=== PATIENT | male | born 1970 | race American Indian/Alaskan Native ===

== ENCOUNTER 2020-11-12 21:38 | Emergency (ER) | payer BC ==
[2020-11-12 23:14] VITALS: BP 165/83
--- NOTE | 2020-11-12 23:19 | Emergency Department Report ---
ED Extremity Problem HPI - General Stated complaint: LT FOOT PAIN/SWELLING Source: patient Mode of arrival: Ambulatory Limitations: No Limitations - History of Present Illness Initial comments: Patient is a 50-year-old -[place] male with a history of morbid obesity, hyperlipidemia and hypertension who presents to the ED with complaint of acute onset persistent nontraumatic left plantar foot pain for the last 6 days. Patient states that the pain was initially mild but subsequently with weightbearing the pain got worse especially in the last 24 hours. Patient states that he has not been able to bear weight on the left foot because of worsening pain. Patient denies headache, dizziness, fall, traumatic injury, heavy lifting, low back pain, chest pain, shortness of breath, fever, chills, nausea and vomiting or hip pain. MD Complaint: extremity pain (Left plantar foot pain and swelling), extremity swelling (Left plantar foot pain and swelling), joint swelling (Left foot swelling) -: Sudden, days(s) (6) Location: left, lower extremity (Left plantar foot pain and swelling) History of Same: No -: Yes arthralgia, No fever, No associated dyspnea, No associated chest pain Radiation: distal Severity scale (0 -10): 8 Quality: aching, sharp Consistency: constant Improves with: nothing Worsens with: weight bearing, walking, exertion, palpation Associated Symptoms: denies other symptoms, arthralgias (Left plantar foot pain). denies: chest pain, shortness of breath, fever, myalgias, rash, other - Related Data Previous Rx's Medication Instructions Recorded Last Taken Type Naproxen 500 mg PO Q12H PRN #30 tablet 11/12/20 Unknown Rx predniSONE [Deltasone] 60 mg PO QDAY #15 tab 11/12/20 Unknown Rx traMADoL [Ultram] 50 mg PO Q6HR PRN #12 tablet 11/12/20 Unknown Rx Allergies Allergy/AdvReac Type Severity Reaction Status Date / Time No Known Allergies Allergy Unverified 11/12/20 23:17 ED Review of Systems ROS: Stated complaint: LT FOOT PAIN/SWELLING Other details as noted in HPI Constitutional: denies: chills, fever Eyes: denies: eye pain, eye discharge, vision change ENT: denies: ear pain, throat pain Respiratory: denies: cough, shortness of breath, wheezing Cardiovascular: denies: chest pain, palpitations Endocrine: no symptoms reported Gastrointestinal: denies: abdominal pain, nausea, diarrhea Genitourinary: denies: urgency, dysuria Musculoskeletal: joint swelling (Left plantar foot swelling), arthralgia (Left plantar foot pain and swelling). denies: back pain Skin: denies: rash, lesions Neurological: denies: headache, weakness, paresthesias Psychiatric: denies: anxiety, depression Hematological/Lymphatic: denies: easy bleeding, easy bruising ED Past Medical Hx - Past Medical History Previous Medical History?: Yes Hx Hypertension: Yes Additional medical history: Hyperlipidemia - Medications Home Medications: Home Medications Medication Instructions Recorded Confirmed Last Taken Type Naproxen 500 mg PO Q12H PRN #30 tablet 11/12/20 Unknown Rx predniSONE [Deltasone] 60 mg PO QDAY #15 tab 11/12/20 Unknown Rx traMADoL [Ultram] 50 mg PO Q6HR PRN #12 tablet 11/12/20 Unknown Rx ED Physical Exam - General General appearance: alert, in no apparent distress, obese - Head Head exam: Present: atraumatic, normocephalic, normal inspection - Eye Eye exam: Present: normal appearance, PERRL, EOMI Pupils: Present: normal accommodation - ENT ENT exam: Present: normal exam, normal orophraynx, mucous membranes moist, TM's normal bilaterally, normal external ear exam - Neck Neck exam: Present: normal inspection, full ROM. Absent: tenderness - Respiratory Respiratory exam: Present: normal lung sounds bilaterally. Absent: respiratory distress, wheezes, rhonchi, stridor, chest wall tenderness, decreased breath sounds, prolonged expiratory - Cardiovascular Cardiovascular Exam: Present: regular rate, normal rhythm, normal heart sounds. Absent: systolic murmur, diastolic murmur, rubs, gallop - GI/Abdominal GI/Abdominal exam: Present: soft, normal bowel sounds. Absent: tenderness, guarding, hyperactive bowel sounds, organomegaly - Extremities Exam Extremities exam: Present: normal inspection, full ROM, tenderness (Palpable left plantar foot tenderness with mild swelling of left foot), normal capillary refill, joint swelling (Left plantar foot tenderness and mild swelling). Absent: pedal edema, calf tenderness - Back Exam Back exam: Present: normal inspection, full ROM. Absent: tenderness, CVA tenderness (R), CVA tenderness (L), muscle spasm, paraspinal tenderness, vertebral tenderness - Neurological Exam Neurological exam: Present: alert, oriented X3, CN II-XII intact, normal gait, reflexes normal - Psychiatric Psychiatric exam: Present: normal affect, normal mood - Skin Skin exam: Present: warm, dry, intact, normal color. Absent: rash ED Course Vital Signs 11/12/20 22:03 Temperature 98.7 F Pulse Rate 72 Respiratory 18 Rate Blood Pressure 165/83 O2 Sat by Pulse 97 Oximetry ED Medical Decision Making - Medical Decision Making This is a 50-year-old -[place] male with a history of morbid obesity, hyperlipidemia and hypertension who presents to the ED with complaint of acute onset persistent nontraumatic left plantar foot pain for the last 6 days. Patient states that the pain was initially mild but subsequently with weightbearing the pain got worse especially in the last 24 hours. Patient states that he has not been able to bear weight on the left foot because of worsening pain. In the ED, patient is alert and oriented x3 and is not in any distress. Patient was treated for pain in the ED and based on the history and physical exam findings, the patient symptoms are likely due to acute plantar fascitis or tendinitis. Patient was therefore discharged home on pain medications and advised to follow-up with his primary care physician in 5 to 7 days for reevaluation. Patient was advised return to the ED immediately if symptoms get worse. - Differential Diagnosis Plantar fasciitis; tendinitis; muscle strain; osteoarthritis; gout Critical care attestation.: If time is entered above; I have spent that time in minutes in the direct care of this critically ill patient, excluding procedure time. ED Disposition Clinical Impression: Plantar fasciitis of left foot, Tendinitis of left foot Disposition: -01 TO HOME OR SELFCARE Is pt being admited?: No Does the pt Need Aspirin: No Condition: Stable Instructions: Achilles Tendinitis, Plantar Fasciitis, Plantar Fasciitis Rehab- [facility] Additional Instructions: Your symptoms are likely due to inflammation of the muscle of your left foot properly known as plantar fasciitis or suspected tendon inflammation of your left foot and ankle. Therefore take medications with food, drink plenty of fluids and follow-up with your primary care physician in 5 to 7 days for reevaluation. Return to the ED immediately if symptoms get worse. Prescriptions: predniSONE [Deltasone] 60 mg PO QDAY #15 tab Naproxen 500 mg PO Q12H PRN #30 tablet PRN Reason: Pain , Severe (7-10) traMADoL [Ultram] 50 mg PO Q6HR PRN #12 tablet PRN Reason: Pain Referrals: [facility] [Provider Group] - 3-5 Days Forms: Work/School Release Form(ED) Time of Disposition: 23:18 Print Language: MALAY
[2020-11-12] MEDS ORDERED: KETOROLAC 30 MG/1 ML INJ IM ONE (23:48)
[2020-11-12] MEDS ORDERED: dexAMETHasone 20 MG/5 ML VIAL IM ONE (23:48)
[2020-11-12] MEDS ORDERED: ONDANSETRON 4 MG ODT TAB PO ONE (23:48)
[2020-11-12] MEDS ORDERED: HYDROcodone/ACETAMINOPHEN 5-325 MG TAB PO ONE (23:48)
== END 2020-11-13 00:20 | disposition home or self-care (01) ==
LOC: ED 21:38
DX: M72.2 Plantar fascial fibromatosis (principal); M77.8 Other enthesopathies, not elsewhere classified; I10 Essential (primary) hypertension; Z79.899 Other long term (current) drug therapy
CPT/HCPCS: 96372; 99282; J1100; J1885; Q0162